=== PATIENT | male | born 1945 | race Caucasian/White ===

== ENCOUNTER → 2017-11-25 | Outpatient (CLI) | payer MEDICARE, OTHER ==
[~2017-11-25] MED LIST: TRICOR145 MG PO
== END ==
LOC: COL.RAD 06:58
DX: Z13.6 Encounter for screening for cardiovascular disorders (principal); Z72.0 Tobacco use

== ENCOUNTER 2021-01-08 09:26 | Emergency (ER) | payer MEDICARE, OTHER ==
[~2021-01-08] VITALS: Ht 180.3 cm; Wt 83.2 kg
[~2021-01-08 09:26] MED LIST changes: +ASPIRIN E.C. 8181 MG PO; +BRILINTA90 MG PO; +CLARITIN 1010 MG/TAB PO; +FLONASEALLERGY NS; +LIPITOR 40MG TA40 MG PO; +LIPITOR 80MG80 MG PO; +LOPRESSOR 225 MG/TAB PO; +NITROSTAT0.4 MG/TAB SL; +PROAIR HFA0.09 MG/AC IH; +SYNTHROID0.05 MG/TA PO; +TEGRETOL 2200 MG/TA1 PO
[2021-01-08 09:31] VITALS: TEMP 97.6
[2021-01-08 10:10] VITALS: BP 107/70; PULSE 63
== END 2021-01-08 10:10 | disposition home or self-care (01) ==
LOC: COL.ER 09:26
DX: R04.0 Epistaxis (principal); I25.10 Atherosclerotic heart disease of native coronary artery without angina pectoris; Z79.02 Long term (current) use of antithrombotics/antiplatelets; Z79.82 Long term (current) use of aspirin

== ENCOUNTER 2021-02-21 16:36 | Outpatient (RCR) | payer MEDICARE, OTHER | END 2021-02-23 | disposition still patient (30) | LOC: COL.CR | DX: Z48.812 Encounter for surgical aftercare following surgery on the circulatory system (principal); Z95.5 Presence of coronary angioplasty implant and graft ==

== ENCOUNTER 2021-02-26 16:57 | Outpatient (RCR) | payer MEDICARE, OTHER | END 2021-02-27 11:32 | disposition still patient (30) | LOC: COL.CR 16:57 | DX: Z95.5 Presence of coronary angioplasty implant and graft (principal) ==